=== PATIENT | male | born 1990 | race Caucasian/White ===

== ENCOUNTER 2020-10-08 15:24 | Observation (INO) | payer OTHER, SELFPAY ==
[2020-10-08] VITALS (10 sets, daily range): BP systolic 109–138; BP diastolic 43–80; PULSE 73–98; RESP 16–18; TEMP 36.3–37.1; O2SAT 95–100; BMI 26.9
--- NOTE | 2020-10-08 09:58 | HP.PCM_ITS ---
History and Physical Date of Admission: 10/08/20 HISTORY OF PRESENT ILLNESS Patient is a 30 year old male who presents for evaluation of left axillary painful mass that is consistent with hidradenitis. He went to [facility] 2 weeks ago and was placed on antibiotics and Kenalog injections. The redness and pain has increased over the past week. He denies any trauma, fever or drainage from the left axilla site. He was seen last week on 09/26/20. He was started on Clindamycin. Since then he states there was spontaneous drainage and the pain has improved. He still notices firmness in his left axilla. He presents today for further evaluation and treatment. PAST MEDICAL HISTORY Seizure Hereditary hemorrhagic telangiectasia Hidradenitis suppurativa of left axilla PAST SURGICAL HISTORY gamma knife treatment ALLERGIES phenytoin [From Dilantin] shellfish MEDICATIONS carbamazepine lacosamide clindamycin HCl doxycycline hyclate FAMILY HISTORY Mother - Hypertension SOCIAL HISTORY Smoking Status: Never smoker alcohol intake: current substance use type: does not use REVIEW OF SYSTEMS General - Denies fever, fatigue, and weight loss. Eyes - Denies cataracts and glaucoma. ENT - Denies nasal congestion and sore throat. Endocrine - Denies excessive thirst and urination. Skin - Denies skin cancer. Has painful mass left axilla consistent with hidradenitis. Denies any drainage. Musculoskeletal - Denies joint pain, joint stiffness, weakness of muscles and joints, back pain, and arthritis. Neuro - Has a history of seizures and HHT since he was 3. Had surgery with Gamma knife. He gets MRI every 6 months. His Neurologist was Dr. Wilson (who re cently retired) at [facility] in [place]. Cardiovascular - Denies chest pain, fatigue, and shortness of breath with exertion. Psych - Denies anxiety and depression. Respiratory - Denies chronic cough and shortness of breath. Gastrointestinal - Denies nausea, vomiting, diarrhea, and constipation. Hematologic - Denies abnormal bruising and bleeding. Has hereditary hemorrhagic telangiectasia (HHT). Genitourinary - Denies hematuria and urinary frequency. PHYSICAL EXAMINATION General - Alert and oriented. HEENT - PERRL. EOMI. Throat is clear. Neck - Supple and non-tender. No cervical adenopathy. Lungs- Clear to auscultation. Heart - Regular rate and rhythm. Abdomen - Soft and non distended. Extremities - FROM. No right axillary adenopathy. Hard to palpate left axilla for adenopathy secondary to the painful hidradenitis mass. Radial pulses are palpable. In the left axillary area was a soft tissue mass that is now flat. Erythematous skin is less. Some induration still present. Measures 5 cm. There is less tenderness to palpation. No fluctuance. No purulent drainage. It is clinically consistent with hidradenitis. He has full range of motion of his left shoulder. Neuro - CN II-XII grossly intact. Psych - Normal mood and affect. ASSESSMENT 1. Hidradenitis left axilla. 2. Hereditary hemorrhagic telangiectasia (HHT). 3. Epilepsy. PLAN Patient has a flare up of hidradenitis left axilla. He states it is new. He has no other areas of concern at this time. Told the patient that hidradenitis can occur in other areas and to look out for it in the future. Since starting Clindamycin and since there has been spontaneous drainage, his symptoms have improved. There is no urgency to admit him to the hospital and start IV antibiotics. If redness, swelling, pain or fever worsen, instructed to go to ED for further evaluation for admission for IV antibiotics and operative intervention with excision of his hidradenitis. Since there is improvement with Clindamycin then can electively schedule his hidradenitis surgery. Will schedule in the next week or so. Followup office one week. When the Clindamycin is finished, will start him on Doxycycline for future flare ups. Surgery will be done under general anesthesia with a surgical observation overnight stay in the hospital. Would leave the wound open and begin postop wound care with the VAC. Tissue removed would be sent to Pathology for analysis to rule out carcinoma and to Microbiology for culture. A positive culture would necessitate antibiotic therapy. After discharge, he would followup at [facility]. If there is a plateau in the healing process, can then proceed with delayed closure with skin grafting. After surgery, will encourage range of motion exercises to minimize stiffness. Patient was informed of the risks and complications of the procedure including alternatives to surgery. These were discussed with the patient personally. Patient voices understanding and wishes to proceed. Some of the risks and complications were included in a form from the [employer]. We discussed the current risks associated with COVID-19. While it is understood that there is a community spread of COVID-19, the risk of brittani COVID-19 while at [facility] ([facility]) is very low; however, the risk cannot be completely mitigated because of the community spread of the disease. We discussed in detail the risk of exposure to and/or potential harm posed by the COVID-19 virus with having a surgery/procedure at this time versus the risk of delaying the surgery/procedure. It is not possible to know either the risk of delaying the surgery or procedure or chance of getting an infection with perfect accuracy, but a joint decision was made to proceed at this time with the scheduled surgery/procedure as indicated on the consent form. Patient was notified that we will need to comply with any screening or testing [facility] wishes to perform or that surgery may be delayed for any positive results. Discussed with the patient that I was tested for COVID-19 on 05/03/20 which was negative and on 05/17/20 which was negative and on 05/31/20 which was negative and on 06/14/20 which was negative and on 06/28/20 which was negative and on 07/19/20 which was negative and on 08/09/20 which was negative and on 09/13/20 which was negative and on 10/04/20 which was negative. My testing regimen at this time is to be COVID-19 tested every 2 weeks or so. Procedure Criteria Procedure Type: Elective COVID Risk Discussion: The surgeon/proceduralist and patient have discussed in detail the risk of exposure to and/or potential harm posed by the COVID-19 virus with having a surgery/procedure at this time versus the risk of delaying the surgery/procedure. It is not possible to know either the risk of delaying the surgery or procedure or chance of getting an infection with perfect accuracy, but a joint decision was made between the patient and the surgeon/proceduralist to proceed at this time with the scheduled surgery/procedure as indicated on the consent form.
[2020-10-08] MEDS: Lactated Ringers 1,000 ML 100 ML IV (13:55)
--- NOTE | 2020-10-08 14:30 | HID_PTH ---
PATIENT: QUITA MARTINEZ LOC: MS3 U#:[id number] AGE/SX: 30/M ROOM: MS308 RE10/08/[address]: Dr. Brayan Mathew MD : 1990 BED: 1 DIS: 10/09/2020 SPEC #: [id number] RECD: 10/08/20 15:55 STATUS: JESSICA CHUYITA #: [id number] SANDRA: 10/08/20 14:[address]: Brayan Mathew DEPT: SURGICAL PATHOLOGY RECD BY: Griselda Shaikh Tissues: Soft tissues, NOS Procedures: Surgery Specimen Level III HEADER OPERATION: Surgical preparation axilla excision, hidradenitis PRE-OP DIAGNOSIS: Hidradenitis left axilla TISSUE SUBMITTED: Soft tissue hidradenitis left axilla MICROSCOPIC DIAGNOSIS Skin and soft tissue of left axilla, excision: Consistent with hidradenitis. AM:ez 10/10/20 MICROSCOPIC DESCRIPTION Slides are reviewed. GROSS DESCRIPTION Received in fixative is one container labeled with the patient's name and designated skin and soft tissue of left axilla. The specimen consists of a discoid fragment of light young skin with attached fibrofatty tissue measuring 4.5 x 3.5 cm and depth of excision measuring 1.5 cm. Serial sections do not reveal mass lesions. Graphic Editor sections are submitted in three cassettes. / AM:ez 10/09/20 TC:2 CPT: 22816
[2020-10-08] MEDS: Cefazolin 2 GM in 0.9% Normal Saline 100 ML IV (14:32)
[2020-10-08] MEDS: Lidocaine 1% /Epi 1:100 (20ml) 20 ML Vial ×3 (14:45→15:07)
--- NOTE | 2020-10-08 15:30 | OP.PCM_ITS ---
Report of Operation Date of Procedure: 10/08/20 Pre-Operative Diagnosis: 1. Hidradenitis left axilla. 2. Hereditary hem orrhagic telangiectasia (HHT). 3. Epilepsy. Post-Operative Diagnosis: Same. Surgery/Procedure Performed:: Surgical preparation left axilla with excision hidradenitis (18 cm2). Description of Surgical Findings:: Patient is a 30 year old male who presents for evaluation of left axillary painful mass that is consistent with hidradenitis. He went to [facility] 2 weeks ago and was placed on antibiotics and Kenalog injections. The redness and pain has increased over the past week. He denies any trauma, fever or drainage from the left axilla site. He was seen last week on 09/26/20. He was started on Clindamycin. Since then he states there was spontaneous drainage and the pain has improved. He still notices firmness in his left axilla. Patient was informed of the risks and complications of the procedure including alternatives to surgery. These were discussed with the patient personally. Patient voices understanding and wishes to proceed. Some of the risks and complications were included in a form from the [employer]. Size of defect left axilla - 6 x 3 x 2.5 cm. senior planning analyst: None Type of Anesthesia:: Local MAC - xylocaine with epinephrine and IV sedation. Specimen's removed: Left axillary hidradenitis to Pathology and Microbiology. Drains: None. Estimated Blood Loss (mL): 50 ml. Description of Procedure: Patient was taken to OR in supine position and was given IV sedation. The left axilla was prepped and draped in the usual fashion. SCD's were placed for DVT prophylaxis. Perioperative antibiotics were given intravenously. For the procedure, I wore an N95 mask and wore proper eyewear protection. The left axillary hidradenitis was infiltrated with xylocaine and epinephrine. After waiting 5 minutes for the anesthetic to take effect, I used a scalpel and proceeded with surgical preparation of the left axilla with excision of his hidradenitis. No purulent drainage was seen. In the subcutaneous tissue, there was extensive fat necrosis. There was extensive indurated scar tissue extending down to the underlying muscle and was excised. Some of the tissue was sent to Pathology for analysis to rule out carcinoma and to Microbiology for culture. A positive culture will necessitate antibiotic therapy. The wound was irrigated with saline. Hemostasis was obtained with electrocautery. The size of the defect left axilla after excision hidradenitis was 6 x 3 x 2.5 cm or 18 cm2. The wound was dressed with Mepitel nonadherent dressing followed by Kerlix gauze and Betadine followed by dry Kerlix gauze followed by ABD pads and compression BELL wrap. Patient tolerated the procedure well and was sent to PACU in satisfactory condition. Patient will be sent upstairs for continued postop care. The VAC will be applied tomorrow. Grafts/Implants Used: None. - Complications None. - Admit VTE Documentation VTE Present on Admission: No VTE Mechan Device Prophylaxis: SCD's VTE Pharm Prophylaxis ordered?: No Surgery Charges CPT - 93078 ICD-10 - L73.2, I78.0, R56.9
[2020-10-08] MEDS: oxyCODONE 5 MG Tablet 10 MG PO (18:24)
[2020-10-08] MEDS: Lactated Ringers 1,000 ML 60 ML IV (18:28)
[2020-10-08] MEDS: Lacosamide 100 MG Tablet 200 MG PO (19:26)
[2020-10-08] MEDS: carBAMazepine 400 MG TAB.SR.12H PO (19:28)
[2020-10-08] MEDS: HYDROmorphone 1 MG/ML Syringe IV (20:37)
[2020-10-09] MEDS: HYDROmorphone 1 MG/ML Syringe IV ×3 (01:12→15:37)
[2020-10-09 01:15] VITALS: BP 103/51; PULSE 69; RESP 16; TEMP 36.8; O2SAT 97
[2020-10-09] MEDS: Lactated Ringers 1,000 ML 60 ML IV (04:10)
[2020-10-09 05:01] VITALS: BP 114/56; PULSE 71; RESP 16; TEMP 36.8; O2SAT 100
[2020-10-09 06:57] LABS: Hematocrit 40.4 % (40-54); Hemoglobin 13.1 g/dL (13.0-16.5); Mean Corp Hgb Conc 32.4 g/dL (32-36); Mean Corpuscular Hgb 29.7 pg (27.0-32.0); Mean Corpuscular Volume 91.6 fL (80-94); Mean Platelet Vol. 8.7 fl (6.2-12.0); Platelet Count 310 K/mm3 (150-450); RBC Distribution Width CV 13.4 % (11.6-14.6); RBC Distribution Width SD 45.6 fl (35.1-43.9); Red Blood Count 4.41 M/mm3 (4.6-6.2); White Blood Count 8.5 K/mm3 (4.4-11.0)
[2020-10-09] MEDS: carBAMazepine 400 MG TAB.SR.12H PO (07:26)
[2020-10-09 07:36] LABS: Anion Gap 7 (5-15); BUN 12 mg/dL (7-18); BUN/Creat Ratio 13.1 RATIO (10-20); Calcium,Total 8.9 mg/dL (8.5-10.1); Chloride 106 mmol/L (98-107); Creatinine, Serum 0.92 mg/dL (0.70-1.30); EST Glomerular Filtration Rate 104 mL/min (>60); Est Glom Filt Rate - Afr Amer 125 mL/min (>60); Estimated Creatinine Clearance 133.89 ml/min; Glucose 106 mg/dL (74-106); Potassium 4.1 mmol/L (3.5-5.1); Prealbumin 30.8 mg/dL (20.0-40.0); Sodium Level 141 mmol/L (136-145)
--- NOTE | 2020-10-09 09:30 | PCM.PN.SRG ---
Subjective: Post op day #1. Resting in bed. Complaining of wound pain. - Physical Exam Vitals/I&O's: Vital Signs Temp Pulse Resp BP Pulse Ox 98.3 F 71 16 114/56 L 100 10/09/20 05:01 10/09/20 05:01 10/09/20 05:01 10/09/20 05:01 10/09/20 05:01 Oxygen Delivery Method Room Air Weight: 204 lb 9.423 oz Body Mass Index (BMI) 26.9 Intake and Output for Last 24 Hours 10/07/20 10/08/20 10/09/20 23:59 23:59 23:59 Intake Total 809 / 809 1356 / 1356 Output Total 500 / 500 1775 / 1775 Balance 309 / 309 -419 / -419 General: Alert, Oriented x3, Cooperative HEENT: Atraumatic Oral: Moist Mucosa Lungs: Normal air movement Cardiovascular: Regular rate Abdomen: Bowel Sounds Present Extremities: Capillary Refill Less than 3 Seconds Skin: Ulcer/ Wound - Left axilla wound dressing intact. No active bleeding. Wound stable. Musculoskeletal: No Tenderness to Palpation of Joints or Extremities - Good left shoulder range of motion Neurological: Cranial nerves II-XII grossly intact Psych/Mental Status: Normal Affect, Appropriate Microbiology Past 72 Hours 10/08/20 15:15 Tissue - Other Gram Stain - Final 10/08/20 15:15 Tissue - Other Wound Culture - Preliminary Gram negative mike Laboratory Results 10/09/20 06:32: WBC 8.5, RBC 4.41 L, Hgb 13.1, Hct 40.4, MCV 91.6, MCH 29.7, MCHC 32.4, RDW Std Deviation 45.6 H, RDW Coeff of Obey 13.4, Plt Count 310, MPV 8.7 10/09/20 06:32: Sodium 141, Potassium 4.1, Chloride 106, Carbon Dioxide 28.0, Anion Gap 7, BUN 12, Creatinine 0.92, Estim Creat Clear Calc 133.89, Est GFR (MDRD) Af Amer 125, Est GFR (MDRD) Non-Af 104, BUN/Creatinine Ratio 13.1, Glucose 106, Calcium 8.9, Prealbumin 30.8 Current Medications Carbamazepine (Carbamazepine 400 Mg Tab.Sr.12h) 400 mg PO BID [facility] Last Admin: 10/09/20 07:26 Dose: 400 mg Documented by: Diazepam (Diazepam 5 Mg Tablet) 5 mg PO 4X/DAY PRN PRN PRN Reason: SPASMS Docusate Sodium (Docusate Sodium 100 Mg Capsule) 100 mg PO BID [facility] Last Admin: 10/09/20 09:47 Dose: 100 mg Documented by: Hydromorphone HCl (Hydromorphone 1 Mg/Ml Syringe) 1 mg IV Q4H PRN PRN PRN Reason: Pain Score 6-10 Last Admin: 10/09/20 05:07 Dose: 1 mg Documented by: Clindamycin Phosphate 600 mg/ (Dextrose) 54 mls @ 100 mls/hr IV Q8 [facility] Last Infusion: 10/09/20 05:40 Dose: Infused Documented by: Lactated Ringer's () 1,000 mls @ 60 mls/hr IV .[id number] [facility] Last Admin: 10/09/20 04:10 Dose: 60 mls/hr Documented by: Sodium Chloride () 250 mls @ 15 mls/hr IV .[id number] PRN PRN Reason: Saline Flush Sodium Chloride () 250 mls @ 15 mls/hr IV .[id number] PRN PRN Reason: Additional IVPB Infusion Lacosamide (Lacosamide 100 Mg Tablet) 200 mg PO BID [facility] Nutritional Formula (Nutritional [facility] (Patel) Packet) [facility] Last Admin: 10/09/20 07:28 Dose: 1 packet Documented by: Ondansetron HCl (Ondansetron 4 Mg/2 Ml Vial) 4 mg IV Q6H PRN PRN PRN Reason: NAUSEA Oxycodone HCl (Oxycodone 5 Mg Tablet) 10 mg PO Q4H PRN PRN PRN Reason: Pain Score 4-5 Last Admin: 10/09/20 13:42 Dose: 10 mg Documented by: Promethazine HCl (Promethazine 25 Mg Tablet) 25 mg PO Q4H PRN PRN PRN Reason: NAUSEA/VOMITING Sodium Chloride (0.9% Saline Lock 10 Ml Syringe) 10 - 40 ml IV UD PRN PRN Reason: SALINE FLUSH Medical Necessity - Tobacco Use Smoking Status: Current some day smoker Tobacco Use: Cigars Assessment/Plan All Active Problems (Last Reviewed 10/03/20 @ 17:[address] Brayan Mathew MD) Hidradenitis suppurativa of left axilla (Acute) 1. Hidradenitis left axilla 2. Hereditary hemorrhagic telangiectasia (HHT). 3. Epilepsy Patient is one day post op for Surgical preparation left axilla with excision hidradenitis (18 cm2). Patient states he has been having issues with pain control. He required IV pain meds throughout the night. He states that he has not noticed any relief with Oxycodone. He denies taking any Valium for muscle spasms, which he was instructed it may be beneficial with his discomfort. Operative culture is pending. Receiving Clindamycin IV. He will be discharged with a wound VAC and home health. Prealbumin is 30.8. Encouraged increase protein intake and supplementation. He will follow up next week on 10/15/20 at the wound center.
[2020-10-09] MEDS: oxyCODONE 5 MG Tablet 10 MG PO ×2 (09:46→13:42)
[2020-10-09] MEDS: Lacosamide 100 MG Tablet 200 MG PO (09:47)
[2020-10-09] MEDS: Docusate Sodium 100 MG Capsule PO (09:47)
--- NOTE | 2020-10-09 09:47 | CASEMGMT ---
Addendum entered by Precious De Santiago 10/09/20 13:10: DUY MERCADO received call back from [facility] and they are able to accept the patient. CM will fax discharge instructions when available. Addendum entered by Precious De Santiago 10/09/20 11:39: DUY MERCADO to discuss HHC choices, patient would like [facility] as first choice and [facility] as second. DUY MERCADO sent referral to [facility] and awaiting acceptance. CM will continue to follow this patient and plan for a safe discharge. Original Note: DUY MERCADO updated by wound nurse that patient will need C for wound vac care. DUY MERCADO provided patient with list of in-network HHC agencies to review. CM will follow-up with patient and assist with HHC setup.
[2020-10-09 11:00] VITALS: BP 129/60; PULSE 71; RESP 16; TEMP 37; O2SAT 100
--- NOTE | 2020-10-09 16:29 | PCM.DC ---
You will use the following diet at home:: No restrictions, Other - encourage nutritional supplementation with protein to help the healing process. Discharge Activity: May Not Drive, May Shower - on the days the NPWT device is changed., - - keep left arm elevated. no heavy lifting. May shower in (days): 2 - may shower on the days the NPWT device is changed. May resume sexual activity in: No Restrictions Weight Bearing Status: Weight bearing as tolerated Lifting Restrictions: 20 lbs. Keep extremity elevated above heart level: Left Arm Call your doctor if your incision/area has: Continuous Slow Oozing, Sudden Increased Bleeding, Increased Pain/ Swelling, Increased Redness, Foul Smelling Discharge, Swelling at the incision site Call your doctor if you observe: Fever of 101 or Higher, Coldness, Increased Pain, Shortness of breath, Chest pain, Calf discomfort, Uncontrolled pain Change Dressing in (Days):: 2 - NPWT device change three times per week at 150 mmHg continous suction. Cleanse incision/area with: Soap & Water - may cleanse the wound at the time of the NPWT device change., - - may shower on the days the NPWT device is changed. Allergies/Adverse Reactions: Allergies phenytoin [From Dilantin] Allergy (Verified 10/08/20 13:19) unknown shellfish derived Allergy (Verified 10/08/20 13:19) unknown Medications to take at Discharge carbamazepine 400 mg tablet,extended release,12 hr 400 mg PO BID 09/17/20 Lacosamide [Vimpat] 200 mg PO BID 10/04/20 Diazepam [Valium] 5 mg PO 4X/DAY PRN PRN #30 tablet 10/09/20 Docusate Sodium [Colace] 100 mg PO BID #60 cap 10/09/20 HYDROmorphone tablet [Dilaudid] 2 mg PO Q4H PRN PRN 7 Days #40 tablet 10/09/20 levoFLOXacin tablet [Levaquin tablet] 500 mg PO DAILY #21 tab 10/09/20 proMETHazine tablet [Phenergan tablet] 25 mg PO 4X/DAY PRN PRN #30 tab 10/09/20 The following prescriptions were given: Docusate Sodium [Colace] 100 mg PO BID #60 cap Transmission Status: Pending to [id number] HYDROmorphone tablet [Dilaudid] 2 mg PO Q4H PRN PRN 7 Days #40 tablet PRN Reason: Pain Score 6-10 [place] [address] levoFLOXacin tablet [Levaquin tablet] 500 mg PO DAILY #21 tab [facility]: [facility] proMETHazine tablet [Phenergan tablet] 25 mg PO 4X/DAY PRN PRN #30 tab PRN Reason: NAUSEA/VOMITING Transmission Status[facility] Diazepam [Valium] 5 mg PO 4X/DAY PRN PRN #30 tablet PRN Reason: Spasms Transmission Status: [place] [facility] [place] [address] [address] Primary Care Physician: AIDEN ARTEAGA [Other] Test Results: Test results from this visit will be discussed in further detail at your follow-up appointment, if applicable. Please Follow Up With: Brayan Mathew MD When: thursday10/15/20 at [facility]. call [phone] for appt. Proposed Discharge Date: 10/09/20
[2020-10-09 17:00] VITALS: BP 129/65; PULSE 87; RESP 16; TEMP 36.9; O2SAT 99
== END 2020-10-09 18:00 | disposition home health service (06) ==
LOC: MS3 10-09 06:33 → SDC 10-09 13:52
PROVIDERS: Admitting Provider Surgery; Referring Provider Surgery; Visit Provider Surgery
PROC: (CPT 11450; principal; 2020-10-08 14:15)
DX: L73.2 Hidradenitis suppurativa (principal); Z20.828 Contact with and (suspected) exposure to other viral communicable diseases; I78.0 Hereditary hemorrhagic telangiectasia; G40.909 Epilepsy, unspecified, not intractable, without status epilepticus; Z23 Encounter for immunization; Z79.899 Other long term (current) drug therapy; F17.290 Nicotine dependence, other tobacco product, uncomplicated; Q28.2 Arteriovenous malformation of cerebral vessels
CPT/HCPCS: 00400; 11450; 80048; 84134; 85027; 87070; 87075; 87077; 87102; 87176; 87186; 87205; 87206; 87426; 88304; 88305; 96365; 96366; 96375; 96376; 99218; C9803; J7120; 90686; G0378; G0379; J2405

== ENCOUNTER 2020-10-29 10:15 | Outpatient (RCR) | payer OTHER, SELFPAY ==
[2020-10-08 16:41] VITALS: BMI 26.9
[2020-10-15 10:32] VITALS: BP 143/84; PULSE 102; RESP 22; TEMP 36.6; BMI 26.6
--- NOTE | 2020-10-15 12:51 | PN.PCM_ITS ---
Type of Wound Date of Service: 10/15/20 Chief Complaint: Open surgical hidradenitis wound left axilla. History of Wound: Surgery 10/08/20 - Surgical preparation left axilla with excision hidradenitis (18 cm2). Wound care - VAC. Operative culture - Proteus mirabilis. He was discharged on Levaquin. Prealbumin from 10/09/20 was 30.8. Encourage nutritional supplementation with protein to help the healing process. Today he denies fever. His appetite is good. He is able to move his left shoul mignon with some discomfort. Progress of Wound: Patient had recent surgery on 10/08/20. - Physical Exam Vital Signs Temp Pulse Resp BP 98 F 102 H 22 H 143/84 H 10/15/20 10:32 10/15/20 10:32 10/15/20 10:32 10/15/20 10:32 Wound Measurements and Assessment WC - Nurse 1 - General Ulcer Measurement Start: 10/15/20 10:30 Freq: Status: Active Protocol: Activity Type Activity Date Activity User E-Sign Co-Sign Detail Recorded Client Recorded Date Recorded By Document 10/15/20 10:32 DL [id number] 10/15/20 10:56 DL 10/15/20 10:32 Wound Center Nurse 1 [Ulcer Assessment] #1 L Axilla -Current Size (cm) - Length 3.5 -Current Size (cm) - Width 6.8 -Current Size (cm) - Depth 1.1 -Total Square Cm 23.80 -Photo Taken Yes -Exudate Amt Small -Exudate Type Serosanguineous -Wound Margin Distinct, Outline Attached -Granulation Amt Medium (34-66%) -Granulation Quality Red -Necrosis Amt Medium (34-66%) -Necrotic Tissue Type Adherent Slough -Structure Exposed N/A -Texture (Francoise-wound Skin Appearance) Scarring -Moisture (Francoise-wound Skin Appearance No Abnormality ) -Color (Francoise-wound Skin Appearance) No Abnormality -Temperature (Francoise-wound Skin No Abnormality Appearance) (Pt Warm) -Ulcer Cleansing Wound Cleanser -Foul Odor after Cleansing No -Anesthetic Used 4% Lidocaine Solution WC - Nurse 2 - General Ulcer CM Notes Start: 10/15/20 10:30 Freq: Status: Active Protocol: Activity Type Activity Date Activity User E-Sign Co-Sign Detail Recorded Client Recorded Date Recorded By Document 10/15/20 11:34 ANNI [id number] 10/15/20 11:38 ANNI 10/15/20 11:34 Wound Center Nurse 2 [Procedure/Treatment] -Time 11:36 -Correct Patient No -Correct Side, Site, Position No -Correct Procedure No -Procedure Performed No -Post Debridement (cm) - Length 3.5 -Post Debridement (cm) - Width 6.8 -Post Debridement (cm) - Depth 1.1 -Total Square (Post) (cm) 23.80 -Area of Debridement (cm) - Length 3.5 -Area of Debridement (cm) - Width 6.8 -Total Square (Area) (cm) 23.80 -Tunneling No -Undermining/Tunneling No -Circular Undermining No -Wound/Ulcer Outcome Not Healed -Ulcer Cleansing Rinsed/ Irrigated with Saline -Foul Odor after Cleansing No [See Physician Procedure note for Specifics] Pain Scale: 0-10 Numeric [Pain] -Is Patient Pain Free? Yes - Nurse 3 - General Ulcer D/C NN Start: 10/15/20 10:30 Freq: Status: Active Protocol: Activity Type Activity Date Activity User E-Sign Co-Sign Detail Recorded Client Recorded Date Recorded By Document 10/15/20 12:01 [id number] 10/15/20 12:03 10/15/20 12:01 Wound Care Nurse 3 [Wound Dressing] #1 L Axilla -Ulcer Cleansing Wound Cleanser -Foul Odor after Cleansing No -Negative Pressure Wound Therapy Continue -Setting (mmHg) 150 -Negative Pressure is Continuous -NPWT Application Charge ($) NPWT </= 50 sq cm [Francoise-Wound Care] -Francoise-Wound Care Barrier Pain Scale: 0-10 Numeric [Pain] -Is Patient Pain Free? Yes - Visit Discharge [Visit Discharge Information] -Discharge Condition Stable -Ambulatory Status Ambulatory -Transportation Private Auto Debridement Note Post-Debridement Measurements/Treatment - Nurse 2 - General Ulcer CM Notes Start: 10/15/20 10:30 Freq: Status: Active Protocol: Activity Type Activity Date Activity User E-Sign Co-Sign Detail Recorded Client Recorded Date Recorded By Document 10/15/20 11:34 ANNI [id number] 10/15/20 11:38 ANNI 10/15/20 11:34 Wound Center Nurse 2 #1 L Axilla -Time 11:36 -Correct Patient No -Correct Side, Site, Position No -Correct Procedure No -Procedure Performed No -Post Debridement (cm) - Length 3.5 -Post Debridement (cm) - Width 6.8 -Post Debridement (cm) - Depth 1.1 -Total Square (Post) (cm) 23.80 -Area of Debridement (cm) - Length 3.5 -Area of Debridement (cm) - Width 6.8 -Total Square (Area) (cm) 23.80 -Tunneling No -Undermining/Tunneling No -Circular Undermining No -Wound/Ulcer Outcome Not Healed -Ulcer Cleansing Rinsed/ Irrigated with Saline -Foul Odor after Cleansing No Pain Scale: 0-10 Numeric Is Patient Pain Free? Yes - Nurse 3 - General Ulcer D/C NN Start: 10/15/20 10:30 Freq: Status: Active Protocol: Activity Type Activity Date Activity User E-Sign Co-Sign Detail Recorded Client Recorded Date Recorded By Document 10/15/20 12:01 [id number] 10/15/20 12:03 10/15/20 12:01 Wound Care Nurse 3 #1 L Axilla -Ulcer Cleansing Wound Cleanser -Foul Odor after Cleansing No -Negative Pressure Wound Therapy Continue -Setting (mmHg) 150 -Negative Pressure is Continuous -NPWT Application Charge ($) NPWT </= 50 sq cm Francoise-Wound Care Barrier Pain Scale: 0-10 Numeric Is Patient Pain Free? Yes WC - Visit Discharge Discharge Condition Stable Ambulatory Status Ambulatory Transportation Private Auto Wound debrided: #1 Left axilla. Laterality: Left Wound Grade/Stage: 2. No debridement was completed today - There was no debridement today as he had recent surgery on 10/08/20. Assessment/Plan Assessment: 1. Open surgical hidradenitis wound left axilla. 2. Hidradenitis left axilla. 3. Hereditary hemorrhagic telangiectasia (HHT). 4. Epilepsy. 5. s/p surgical preparation left axilla with excision hidradenitis (18 cm2). Plan: Continue the VAC. Operative culture showed Proteus mirabilis. He was di scharged on Levaquin. Prealbumin from 10/09/20 was 30.8. Encourage nutritional supplementation with protein to help the healing process. Encourage range of motion exercises to minimize stiffness. Renewed his Percocet for pain (28 tabs). Followup 2 weeks. 111xxx-113xx: [id number] Global Visit - ICD-10 - Z48.89, S41.102A, L73.2, I78.0, R56.9
[2020-10-29 10:19] VITALS: BP 138/77; PULSE 85; RESP 16; TEMP 36; BMI 26.6
--- NOTE | 2020-10-29 13:19 | PCM.WC.PN ---
(1) Open wound of left axillary region with complication Status: Acute Code(s): S41.102A - Unspecified open wound of left upper arm, initial encounter (2) Hidradenitis suppurativa of left axilla Status: Chronic Code(s): L73.2 - Hidradenitis suppurativa (3) Hereditary hemorrhagic telangiectasia Status: Chronic Code(s): I78.0 - Hereditary hemorrhagic telangiectasia Comment: since age 3 Type of Wound Date of Service: 10/29/20 Chief Complaint: Open surgical hidradenitis wound left axilla. History of Wound: Surgery 10/08/20 - Surgical preparation left axilla with excision hidradenitis (18 cm2). Wound care - VAC. Operative culture - Proteus mirabilis. He was discharged on Levaquin. Prealbumin from 10/09/20 was 30.8. Encourage nutritional supplementation with protein to help the healing process. Today he denies fever. His appetite is good. He is able to move his left shoulder with some discomfort. Progress of Wound: Patient had recent surgery on 10/08/20. Left axilla ulcer improved in size and depth with the wound VAC. - Physical Exam Vital Signs Temp Pulse Resp BP 96.8 F L 85 16 138/77 H 10/29/20 10:19 10/29/20 10:19 10/29/20 10:19 10/29/20 10:19 General: Alert, Oriented x3, Cooperative HEENT: Atraumatic Oral: Moist Mucosa Lungs: Normal air movement Cardiovascular: Regular rate Extremities: Capillary Refill Less than 3 Seconds Skin: Ulcer/ Wound - Left axilla wound is beefy pink and smaller in diameter and depth. Wound Measurements and Assessment WC - Nurse 1 - General Ulcer Measurement Start: 10/15/20 10:30 Freq: Status: Active Protocol: Activity Type Activity Date Activity User E-Sign Co-Sign Detail Recorded Client Recorded Date Recorded By Document 10/29/20 10:19 [facility] [id number] 10/29/20 10:26 [facility] 10/29/20 10:19 Wound Center Nurse 1 [Ulcer Assessment] #1 L Axilla -Combined with other wound No -Current Size (cm) - Length 3.5 -Current Size (cm) - Width 5.7 -Current Size (cm) - Depth 0.9 -Total Square Cm 19.95 -Photo Taken No -Epithelialization Small 1-33% -Tunneling No -Undermining/Tunneling No -Circular Undermining No -Exudate Amt Small -Exudate Type Serosanguineous -Wound Margin Distinct, Outline Attached -Granulation Amt Large (67-100%) -Granulation Quality [place] -Slough/Fibrin Yes -Necrosis Amt Small (1-33%) -Necrotic Tissue Type Adherent Slough -Texture (Francoise-wound Skin Appearance) Assessed, Scarring -Moisture (Francoise-wound Skin Appearance Assessed ) -Color (Francoise-wound Skin Appearance) Assessed -Temperature (Francoise-wound Skin No Abnormality Appearance) (Pt Warm) -Tenderness on Palpation (Francoise-wound No Skin Appearance) -Ulcer Cleansing Rinsed/ Irrigated with Saline -Foul Odor after Cleansing No -Anesthetic Used 5% Lidocaine Gel - Nurse 2 - General Ulcer CM Notes Start: 10/15/20 10:30 Freq: Status: Active Protocol: Activity Type Activity Date Activity User E-Sign Co-Sign Detail Recorded Client Recorded Date Recorded By Document 10/29/20 10:39 ANNI [id number] 10/29/20 10:44 ANNI 10/29/20 10:39 Wound Center Nurse 2 [Procedure/Treatment] -Time 10:40 -Correct Patient Yes -Correct Side, Site, Position Yes -Correct Procedure Yes -Procedure Performed Yes -Type of Procedure Debridement -Clinical Debridement Subcutaneous -Tissue Removed Subcutaneous -Post Debridement (cm) - Length 5.8 -Post Debridement (cm) - Width 3.5 -Post Debridement (cm) - Depth 1.1 -Total Square (Post) (cm) 20.30 -Area of Debridement (cm) - Length 5.8 -Area of Debridement (cm) - Width 3.5 -Total Square (Area) (cm) 20.30 -Tunneling No -Undermining/Tunneling No -Circular Undermining No -Wound/Ulcer Outcome Not Healed -Ulcer Cleansing Rinsed/ Irrigated with Saline -Foul Odor after Cleansing No -Bioengineered Tissue No -Bleeding Controlled with Pressure -Offloading No -Treatment Response Procedure Tolerated Well -Debridement - Subq, 1st 20sq cm Yes -Debridement, SubQ, ea addt'l 20sq cm 1 or part thereof [See Physician Procedure note for Specifics] Pain Scale: 0-10 Numeric [Pain] -Is Patient Pain Free? Yes - Nurse 3 - General Ulcer D/C NN Start: 10/15/20 10:30 Freq: Status: Active Protocol: Activity Type Activity Date Activity User E-Sign Co-Sign Detail Recorded Client Recorded Date Recorded By Document 10/29/20 12:03 MARCEL [id number] 10/29/20 12:03 DL 10/29/20 12:03 Wound Care Nurse 3 [Wound Dressing] #1 L Axilla -Ulcer Cleansing Wound Cleanser -Foul Odor after Cleansing No -Negative Pressure Wound Therapy Continue -Setting (mmHg) 150 -Negative Pressure is Continuous -NPWT Application Charge ($) NPWT > 50 sq cm [Post Procedure Tolerated] -Treatment Response Procedure Tolerated Well Pain Scale: 0-10 Numeric [Pain] -Is Patient Pain Free? Yes - Visit Discharge [Visit Discharge Information] -Discharge Condition Stable -Ambulatory Status Ambulatory -Transportation Private Auto Musculoskeletal: Tenderness Neurological: Cranial nerves II-XII grossly intact Psych/Mental Status: Normal Affect, Appropriate Debridement Note Post-Debridement Measurements/Treatment - Nurse 2 - General Ulcer CM Notes Start: 10/15/20 10:30 Freq: Status: Active Protocol: Activity Type Activity Date Activity User E-Sign Co-Sign Detail Recorded Client Recorded Date Recorded By Document 10/15/20 11:34 [id number] 10/15/20 11:38 Document 10/29/20 10:39 [id number] 10/29/20 10:44 10/15/20 10/29/20 11:34 10:39 Wound Center Nurse 2 #1 L Axilla -Time 11:36 10:40 -Correct Patient No Yes -Correct Side, Site, Position No Yes -Correct Procedure No Yes -Procedure Performed No Yes -Type of Procedure Debridement -Clinical Debridement Subcutaneous -Tissue Removed Subcutaneous -Post Debridement (cm) - Length 3.5 5.8 -Post Debridement (cm) - Width 6.8 3.5 -Post Debridement (cm) - Depth 1.1 1.1 -Total Square (Post) (cm) 23.80 20.30 -Area of Debridement (cm) - Length 3.5 5.8 -Area of Debridement (cm) - Width 6.8 3.5 -Total Square (Area) (cm) 23.80 20.30 -Tunneling No No -Undermining/Tunneling No No -Circular Undermining No No -Wound/Ulcer Outcome Not Healed Not Healed -Ulcer Cleansing Rinsed/ Rinsed/ Irrigated with Irrigated with Saline Saline -Foul Odor after Cleansing No No -Bioengineered Tissue No -Bleeding Controlled with Pressure -Offloading No -Treatment Response Procedure Tolerated Well -Debridement - Subq, 1st 20sq cm Yes -Debridement, SubQ, ea addt'l 20sq cm 1 or part thereof Pain Scale: 0-10 Numeric Is Patient Pain Free? Yes Yes - Nurse 3 - General Ulcer D/C NN Start: 10/15/20 10:30 Freq: Status: Active Protocol: Activity Type Activity Date Activity User E-Sign Co-Sign Detail Recorded Client Recorded Date Recorded By Document 10/15/20 12:01 DL [id number] 10/15/20 12:03 DL Document 10/29/20 12:03 DL [id number] 10/29/20 12:03 DL 10/15/20 10/29/20 12:01 12:03 Wound Care Nurse 3 #1 L Axilla -Ulcer Cleansing Wound Cleanser Wound Cleanser -Foul Odor after Cleansing No No -Negative Pressure Wound Therapy Continue Continue -Setting (mmHg) 150 150 -Negative Pressure is Continuous Continuous -NPWT Application Charge ($) NPWT </= 50 sq NPWT > 50 sq cm cm Francoise-Wound Care Barrier Treatment Response Procedure Tolerated Well Pain Scale: 0-10 Numeric Is Patient Pain Free? Yes Yes - Visit Discharge Discharge Condition Stable Stable Ambulatory Status Ambulatory Ambulatory Transportation Private Auto Private Auto Wound debrided: Axilla wound Laterality: Left Type of Debridement: Excisional debridement Anesthesia Used: 5% Lidocaine Gel Depth: Down to and including healthy tissue, in the subcutaneous layer Percentage of wound debrided: 100 Instrument Used: 7mm curette Tissue Removed: Subcutaneous tissue and slough Severity: Fat Layer Exposed Amount of bleeding with debridement: Mild Bleeding Controlled with: Pressure Patient tolerated procedure well Assessment/Plan Assessment: 1. Open surgical hidradenitis wound left axilla. 2. Hidradenitis left axilla. 3. Hereditary hemorrhagic telangiectasia (HHT). 4. Epilepsy. 5. s/p surgical preparation left axilla with excision hidradenitis (18 cm2). Plan: Continue the VAC. Operative culture showed Proteus mirabilis. He was discharged on Levaquin. Prealbumin from 10/09/20 was 30.8. Encourage nutritional supplementation with protein to help the healing process. Encourage range of motion exercises to minimize stiffness. He is having increased pain which sounds like never pain with how he describes is at burning. Renewed his Percocet for pain (21 tabs). And will start him on Neurontin 100-200 mg twice daily (60 tabs). PDMP reviewed. Followup 2 weeks. 111xxx-113xx: [id number] Global Visit
== END 2020-11-01 23:59 ==
LOC: WC 10:15
PROVIDERS: Referring Provider Surgery; Visit Provider Surgery
DX: L73.2 Hidradenitis suppurativa (principal); I78.0 Hereditary hemorrhagic telangiectasia; L98.492 Non-pressure chronic ulcer of skin of other sites with fat layer exposed
CPT/HCPCS: 11042; 11045; 97605; 97606; 99213; G0463

== ENCOUNTER 2020-11-19 10:15 | Outpatient (RCR) | payer OTHER, SELFPAY ==
[2020-11-02 00:39] VITALS: BP 138/77; PULSE 85; RESP 16; TEMP 36
[2020-11-12 09:57] VITALS: BP 143/71; PULSE 76; RESP 16; TEMP 36.4; BMI 26.6
--- NOTE | 2020-11-12 13:13 | PCM.WC.PN ---
(1) Skin ulcer of axilla Status: Chronic Code(s): L98.499 - Non-pressure chronic ulcer of skin of other sites with unspecified severity (2) Hidradenitis suppurativa of left axilla Status: Chronic Code(s): L73.2 - Hidradenitis suppurativa Type of Wound Date of Service: 11/12/20 Chief Complaint: Open surgical hidradenitis wound left axilla. History of Wound: Surgery 10/08/20 - Surgical preparation left axilla with excision hidradenitis (18 cm2). Wound care - Stop wound VAC and start Silvercel daily. Operative culture - Proteus mirabilis. He was discharged on Levaquin. Prealbumin from 10/09/20 was 30.8. Encourage nutritional supplementation with protein to help the healing process. Today he denies fever. His appetite is good. Progress of Wound: Left axilla ulcer is much improved. - Physical Exam Vital Signs Temp Pulse Resp BP 97.6 F L 76 16 143/71 H 11/12/20 09:57 11/12/20 09:57 11/12/20 09:57 11/12/20 09:57 General: Alert, Oriented x3, Cooperative HEENT: Atraumatic Oral: Moist Mucosa Lungs: Normal air movement Cardiovascular: Regular rate Extremities: Capillary Refill Less than 3 Seconds Skin: Ulcer/ Wound - Left axilla ulcer is beefy pink and improving in side. Wound Measurements and Assessment WC - Nurse 1 - General Ulcer Measurement Start: 11/12/20 09:56 Freq: Status: Active Protocol: Activity Type Activity Date Activity User E-Sign Co-Sign Detail Recorded Client Recorded Date Recorded By Document 11/12/20 09:57 [facility] [id number] 11/12/20 10:00 [facility] 11/12/20 09:57 Wound Center Nurse 1 [Ulcer Assessment] #1 L Axilla -Combined with other wound No -Current Size (cm) - Length 2.4 -Current Size (cm) - Width 4.2 -Current Size (cm) - Depth 0.1 -Total Square Cm 10.08 -Photo Taken No -Epithelialization Small 1-33% -Tunneling No -Undermining/Tunneling No -Circular Undermining No -Exudate Amt Small -Exudate Type Serosanguineous -Wound Margin Distinct, Outline Attached -Granulation Amt Large (67-100%) -Granulation Quality Pale,Red -Slough/Fibrin Yes -Necrosis Amt None Present (0 %) -Texture (Francoise-wound Skin Appearance) Assessed, Scarring -Moisture (Francoise-wound Skin Appearance Assessed ) -Color (Francoise-wound Skin Appearance) Assessed -Temperature (Francoise-wound Skin No Abnormality Appearance) (Pt Warm) -Tenderness on Palpation (Francoise-wound No Skin Appearance) -Ulcer Cleansing Rinsed/ Irrigated with Saline -Foul Odor after Cleansing No -Anesthetic Used 4% Lidocaine Solution NIRANJAN - Nurse 2 - General Ulcer CM Notes Start: 11/12/20 09:56 Freq: Status: Active Protocol: Activity Type Activity Date Activity User E-Sign Co-Sign Detail Recorded Client Recorded Date Recorded By Document 11/12/20 10:13 [id number] 11/12/20 10:16 11/12/20 10:13 Wound Center Nurse 2 [Procedure/Treatment] -Time 10:14 -Correct Patient Yes -Correct Side, Site, Position Yes -Correct Procedure Yes -Procedure Performed Yes -Type of Procedure Debridement -Clinical Debridement Subcutaneous -Tissue Removed Subcutaneous -Post Debridement (cm) - Length 2.1 -Post Debridement (cm) - Width 3.5 -Post Debridement (cm) - Depth 0.1 -Total Square (Post) (cm) 7.35 -Area of Debridement (cm) - Length 2.1 -Area of Debridement (cm) - Width 3.5 -Total Square (Area) (cm) 7.35 -Tunneling No -Undermining/Tunneling No -Circular Undermining No -Wound/Ulcer Outcome Not Healed -Ulcer Cleansing Rinsed/ Irrigated with Saline -Foul Odor after Cleansing No -Bioengineered Tissue No -Bleeding Controlled with Pressure -Offloading No -Treatment Response Procedure Tolerated Well -Debridement - Subq, 1st 20sq cm Yes [See Physician Procedure note for Specifics] Pain Scale: 0-10 Numeric [Pain] -Is Patient Pain Free? Yes NIRANJAN - Nurse 3 - General Ulcer D/C NN Start: 11/12/20 09:56 Freq: Status: Active Protocol: Activity Type Activity Date Activity User E-Sign Co-Sign Detail Recorded Client Recorded Date Recorded By Document 11/12/20 10:24 FL [id number] 11/12/20 10:36 FL 11/12/20 10:24 Wound Care Nurse 3 [Wound Dressing] #1 L Axilla -Ulcer Cleansing Rinsed/ Irrigated with Saline -Primary Dressing Applied Silvercel -Primary Dressing Covered/Secured Dry Gauze, with Secured with Tape -Silvercel 1 - Visit Discharge [Visit Discharge Information] -Discharge Condition Stable -Ambulatory Status Ambulatory -Transportation Private Auto -Medication Reconcilliation completed No & provided to patient/care provider -Clinical Summary of Care Provided Yes Musculoskeletal: No Tenderness to Palpation of Joints or Extremities Neurological: Cranial nerves II-XII grossly intact, Deep Tendon Reflexes 2+/4 and Symmetrical Debridement Note Post-Debridement Measurements/Treatment - Nurse 2 - General Ulcer CM Notes Start: 11/12/20 09:56 Freq: Status: Active Protocol: Activity Type Activity Date Activity User E-Sign Co-Sign Detail Recorded Client Recorded Date Recorded By Document 11/12/20 10:13 [id number] 11/12/20 10:16 11/12/20 10:13 Wound Center Nurse 2 #1 L Axilla -Time 10:14 -Correct Patient Yes -Correct Side, Site, Position Yes -Correct Procedure Yes -Procedure Performed Yes -Type of Procedure Debridement -Clinical Debridement Subcutaneous -Tissue Removed Subcutaneous -Post Debridement (cm) - Length 2.1 -Post Debridement (cm) - Width 3.5 -Post Debridement (cm) - Depth 0.1 -Total Square (Post) (cm) 7.35 -Area of Debridement (cm) - Length 2.1 -Area of Debridement (cm) - Width 3.5 -Total Square (Area) (cm) 7.35 -Tunneling No -Undermining/Tunneling No -Circular Undermining No -Wound/Ulcer Outcome Not Healed -Ulcer Cleansing Rinsed/ Irrigated with Saline -Foul Odor after Cleansing No -Bioengineered Tissue No -Bleeding Controlled with Pressure -Offloading No -Treatment Response Procedure Tolerated Well -Debridement - Subq, 1st 20sq cm Yes Pain Scale: 0-10 Numeric Is Patient Pain Free? Yes - Nurse 3 - General Ulcer D/C NN Start: 11/12/20 09:56 Freq: Status: Active Protocol: Activity Type Activity Date Activity User E-Sign Co-Sign Detail Recorded Client Recorded Date Recorded By Document 11/12/20 10:24 FL [id number] 11/12/20 10:36 FL 11/12/20 10:24 Wound Care Nurse 3 #1 L Axilla -Ulcer Cleansing Rinsed/ Irrigated with Saline -Primary Dressing Applied Silvercel -Primary Dressing Covered/Secured with Dry Gauze, Secured with Tape -Silvercel 1 WC - Visit Discharge Discharge Condition Stable Ambulatory Status Ambulatory Transportation Private Auto Medication Reconcilliation completed & No provided to patient/care provider Clinical Summary of Care Provided Yes Wound debrided: axilla ulcer Laterality: Left Type of Debridement: Excisional debridement Anesthesia Used: 5% Lidocaine Gel Depth: Down to and including healthy tissue, in the subcutaneous layer Percentage of wound debrided: 100 Instrument Used: 5mm curette Tissue Removed: Subcutaneous tissue and slough Severity: Fat Layer Exposed Amount of bleeding with debridement: Mild Bleeding Controlled with: Pressure Patient tolerated procedure well Assessment/Plan Assessment: 1. Open surgical hidradenitis wound left axilla. 2. Hidradenitis left axilla. 3. Hereditary hemorrhagic telangiectasia (HHT). 4. Epilepsy. 5. s/p surgical preparation left axilla with excision hidradenitis (18 cm2). Plan: Wound care - Stop the VAC. Start Silvercel dressing changes daily. Operative culture showed Proteus mirabilis. He was discharged on Levaquin. Prealbumin from 10/09/20 was 30.8. Encourage nutritional supplementation with protein to help the healing process. Encourage range of motion exercises to minimize stiffness. 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 Follow up one week. 111xxx-113xx: [id number] Global Visit
[2020-11-19 10:52] VITALS: BP 119/62; PULSE 73; TEMP 36.4; BMI 26.6
--- NOTE | 2020-11-19 20:23 | PCM.WC.PN ---
Type of Wound Date of Service: 11/19/20 Chief Complaint: Nonhealing hidradenitis ulcer left axilla. History of Wound: Surgery 10/08/20 - Surgical preparation left axilla with excision hidradenitis (18 cm2). Wound care - Silvercel. Operative culture - Proteus mirabilis. He was discharged on Levaquin and is finishing them. Prealbumin from 10/09/20 was 30.8. Encourage nutritional supplementation with protein to help the healing process. Today he denies fever. His appetite is good. He has good range of motion of his left arm and shoulder. Progress of Wound: Improved. - Physical Exam Vital Signs Temp Pulse Resp BP 97.5 F L 73 16 119/62 11/19/20 10:52 11/19/20 10:52 11/12/20 09:57 11/19/20 10:52 Wound Measurements and Assessment - Nurse 1 - General Ulcer Measurement Start: 11/12/20 09:56 Freq: Status: Active Protocol: Activity Type Activity Date Activity User E-Sign Co-Sign Detail Recorded Client Recorded Date Recorded By Document 11/19/20 10:52 SHERINE [id number] 11/19/20 10:57 SHERINE 11/19/20 10:52 Wound Center Nurse 1 [Ulcer Assessment] #1 L Axilla -Current Size (cm) - Length 1.5 -Current Size (cm) - Width 3 -Current Size (cm) - Depth 0.1 -Total Square Cm 4.5 -Wound Margin Distinct, Outline Attached -Granulation Amt Medium (34-66%) -Granulation Quality Red -Necrosis Amt None Present (0 %) -Texture (Francoise-wound Skin Appearance) Assessed, Scarring -Moisture (Francoise-wound Skin Appearance No Abnormality, ) Assessed -Color (Francoise-wound Skin Appearance) No Abnormality, Assessed -Temperature (Francoise-wound Skin No Abnormality Appearance) (Pt Warm) -Tenderness on Palpation (Francoise-wound No Skin Appearance) -Ulcer Cleansing Rinsed/ Irrigated with Saline -Foul Odor after Cleansing No -Anesthetic Used 4% Lidocaine Solution - Nurse 3 - General Ulcer D/C NN Start: 11/12/20 09:56 Freq: Status: Active Protocol: Activity Type Activity Date Activity User E-Sign Co-Sign Detail Recorded Client Recorded Date Recorded By Document 11/19/20 11:37 KR [id number] 11/19/20 11:38 KR 11/19/20 11:37 Wound Care Nurse 3 [Wound Dressing] -Ulcer Cleansing Rinsed/ Irrigated with Saline -Primary Dressing Applied Aquacel AG 2x2 -Primary Dressing Covered/Secured Dry Gauze, with Secured with Tape -Aquacel AG 2x2 1 Pain Scale: 0-10 Numeric [Pain] -Is Patient Pain Free? Yes WC - Visit Discharge [Visit Discharge Information] -Discharge Condition Stable -Ambulatory Status Ambulatory -Transportation Private Auto Debridement Note Post-Debridement Measurements/Treatment - Nurse 2 - General Ulcer CM Notes Start: 11/12/20 09:56 Freq: Status: Active Protocol: Activity Type Activity Date Activity User E-Sign Co-Sign Detail Recorded Client Recorded Date Recorded By Document 11/12/20 10:13 ANNI [id number] 11/12/20 10:16 ANNI 11/12/20 10:13 Wound Center Nurse 2 #1 L Axilla -Time 10:14 -Correct Patient Yes -Correct Side, Site, Position Yes -Correct Procedure Yes -Procedure Performed Yes -Type of Procedure Debridement -Clinical Debridement Subcutaneous -Tissue Removed Subcutaneous -Post Debridement (cm) - Length 2.1 -Post Debridement (cm) - Width 3.5 -Post Debridement (cm) - Depth 0.1 -Total Square (Post) (cm) 7.35 -Area of Debridement (cm) - Length 2.1 -Area of Debridement (cm) - Width 3.5 -Total Square (Area) (cm) 7.35 -Tunneling No -Undermining/Tunneling No -Circular Undermining No -Wound/Ulcer Outcome Not Healed -Ulcer Cleansing Rinsed/ Irrigated with Saline -Foul Odor after Cleansing No -Bioengineered Tissue No -Bleeding Controlled with Pressure -Offloading No -Treatment Response Procedure Tolerated Well -Debridement - Subq, 1st 20sq cm Yes Pain Scale: 0-10 Numeric Is Patient Pain Free? Yes - Nurse 3 - General Ulcer D/C NN Start: 11/12/20 09:56 Freq: Status: Active Protocol: Activity Type Activity Date Activity User E-Sign Co-Sign Detail Recorded Client Recorded Date Recorded By Document 11/12/20 10:24 MT [id number] 11/12/20 10:36 MT Document 11/19/20 11:37 KR [id number] 01/18/21 11:38 KR 11/12/20 11/19/20 10:24 11:37 Wound Care Nurse 3 #1 L Axilla -Ulcer Cleansing Rinsed/ Rinsed/ Irrigated with Irrigated with Saline Saline -Primary Dressing Applied Silvercel Aquacel AG 2x2 -Primary Dressing Covered/Secured with Dry Gauze, Dry Gauze, Secured with Secured with Tape Tape -Aquacel AG 2x2 1 -Silvercel 1 Pain Scale: 0-10 Numeric Is Patient Pain Free? Yes WC - Visit Discharge Discharge Condition Stable Stable Ambulatory Status Ambulatory Ambulatory Transportation Private Auto Private Auto Medication Reconcilliation completed & No provided to patient/care provider Clinical Summary of Care Provided Yes Wound debrided: #1 Left axilla. Laterality: Left Wound Grade/Stage: 2. Type of Debridement: Excisional debridement Anesthesia Used: 4% Lidocaine Solution Depth: Down to and including healthy tissue, in the subcutaneous layer Percentage of wound debrided: 100 Instrument Used: 3mm curette Tissue Removed: subcutaneous tissue. Severity: Fat Layer Exposed Amount of bleeding with debridement: Mild Bleeding Controlled with: Pressure Patient tolerated procedure well Assessment/Plan Active Problems (Last Reviewed 10/03/20 @ 17:[address] Brayan Mathew MD) Skin ulcer of axilla (Chronic) Hidradenitis suppurativa of left axilla (Chronic) Assessment: 1. Nonhealing hidradenitis ulcer left axilla. 2. Hidradenitis left axilla. 3. Hereditary hemorrhagic telangiectasia (HHT). 4. Epilepsy. 5. s/p surgical preparation left axilla with excision hidradenitis (18 cm2). Plan: Continue Silvercel dressing changes daily. Operative culture showed Proteus mirabilis. He was discharged on Levaquin and is finishing them. Prealbumin from 10/09/20 was 30.8. Encourage nutritional supplementation with protein to help the healing process. Encourage range of motion exercises to minimize stiffness. He has good range of motion of his left arm and shoulder. He is anxious to return to work. Will have him return tomorrow with no restrictions. Follow up 2 weeks. [id number]: [id number] Global Visit - ICD-10 - Z48.89, L98.492, L73.2, I78.0, R56.9
== END 2020-12-02 23:59 ==
LOC: WC 10:15
PROVIDERS: Referring Provider Surgery; Visit Provider Surgery
DX: L73.2 Hidradenitis suppurativa (principal); L98.492 Non-pressure chronic ulcer of skin of other sites with fat layer exposed; I78.0 Hereditary hemorrhagic telangiectasia
CPT/HCPCS: 11042

== ENCOUNTER 2020-12-03 14:00 | Outpatient (RCR) | payer OTHER, SELFPAY ==
[2020-12-03 00:34] VITALS: BP 119/62; PULSE 73; RESP 16; TEMP 36.4
[2020-12-03 14:07] VITALS: BP 138/77; PULSE 77; RESP 18; TEMP 36; BMI 26.6
--- NOTE | 2020-12-03 14:35 | PN.PCM_ITS ---
(1) Skin ulcer of axilla Status: Chronic Code(s): L98.499 - Non-pressure chronic ulcer of skin of other sites with unspecified severity (2) Hidradenitis suppurativa of left axilla Status: Chronic Code(s): L73.2 - Hidradenitis suppurativa Type of Wound Date of Service: 12/03/20 Chief Complaint: Nonhealing hidradenitis ulcer left axilla. History of Wound: Surgery 10/08/20 - Surgical preparation left axilla with excision hidradenitis (18 cm2). Healed today. Operative culture - Proteus mirabilis. He was discharged on Levaquin and is finishing them. Prealbumin from 10/09/20 was 30.8. Encourage nutritional supplementation with protein to help the healing process. Today he denies fever. His appetite is good. He has good range of motion of his left arm and shoulder. Progress of Wound: Healed. - Physical Exam Vital Signs Temp Pulse Resp BP 96.8 F L 77 18 138/77 H 12/03/20 14:07 12/03/20 14:07 12/03/20 14:07 12/03/20 14:07 General: Alert, Oriented x3, Cooperative HEENT: Atraumatic Oral: Moist Mucosa Lungs: Normal air movement Cardiovascular: Regular rate Extremities: Capillary Refill Less than 3 Seconds Skin: Ulcer/ Wound - Left axilla is healed today. Wound Measurements and Assessment WC - Nurse 1 - General Ulcer Measurement Start: 12/03/20 14:06 Freq: Status: Discharge Protocol: Activity Type Activity Date Activity User E-Sign Co-Sign Detail Recorded Client Recorded Date Recorded By Document 12/03/20 14:07 DL [id number] 12/03/20 14:10 DL Edit Status 12/03/20 14:23 COLE DAEMON Active=>Discharge [id number] 12/03/20 14:23 COLE DADAYANAON 12/03/20 14:07 Wound Center Nurse 1 [Ulcer Assessment] #1 L Axilla -Current Size (cm) - Length 0 -Current Size (cm) - Width 0 -Current Size (cm) - Depth 0 -Total Square Cm 0 -Photo Taken Yes -Exudate Amt None Present -Wound Margin Flat & Intact -Granulation Amt Large (67-100%) -Granulation Quality [place] -Slough/Fibrin Yes -Necrosis Amt None Present (0 %) -Structure Exposed N/A -Texture (Francoise-wound Skin Appearance) Scarring -Moisture (Francoise-wound Skin Appearance No Abnormality ) -Color (Francoise-wound Skin Appearance) No Abnormality -Temperature (Francoise-wound Skin No Abnormality Appearance) (Pt Warm) -Tenderness on Palpation (Francoise-wound No Skin Appearance) -Ulcer Cleansing Rinsed/ Irrigated with Saline -Foul Odor after Cleansing No - Nurse 2 - General Ulcer CM Notes Start: 12/03/20 14:06 Freq: Status: Discharge Protocol: Activity Type Activity Date Activity User E-Sign Co-Sign Detail Recorded Client Recorded Date Recorded By Document 12/03/20 14:16 ANNI [id number] 12/03/20 14:17 ANNI Edit Status 12/03/20 14:23 BKG DAEMON Active=>Discharge [place] [id number] 12/03/20 14:23 BKG DAEMON 12/03/20 14:16 Wound Center Nurse 2 [Procedure/Treatment] -Correct Patient No -Correct Side, Site, Position No -Correct Procedure No -Procedure Performed No -Post Debridement (cm) - Length 0 -Post Debridement (cm) - Width 0 -Post Debridement (cm) - Depth 0 -Total Square (Post) (cm) 0 -Area of Debridement (cm) - Length 0 -Area of Debridement (cm) - Width 0 -Total Square (Area) (cm) 0 -Wound/Ulcer Outcome Healed- Epithelialized [See Physician Procedure note for Specifics] Pain Scale: 0-10 Numeric [Pain] -Is Patient Pain Free? Yes - Nurse 3 - General Ulcer D/C NN Start: 12/03/20 14:06 Freq: Status: Discharge Protocol: Activity Type Activity Date Activity User E-Sign Co-Sign Detail Recorded Client Recorded Date Recorded By Document 12/03/20 14:17 ANNI [id number] 12/03/20 14:17 ANNI Edit Status 12/03/20 14:23 BKG DAEMON Active=>Discharge [facility] 12/03/20 14:23 BKG DAEMON 12/03/20 14:17 -Is Patient Pain Free? Yes - Visit Discharge [Visit Discharge Information] -Discharge Condition Stable -Ambulatory Status Ambulatory -Transportation Private Auto -Medication Reconcilliation completed Yes & provided to patient/care provider -Clinical Summary of Care Provided Yes Musculoskeletal: No Tenderness to Palpation of Joints or Extremities - Good range of motion of his left shoulder and arm Neurological: Cranial nerves II-XII grossly intact Psych/Mental Status: Normal Affect, Appropriate Debridement Note Post-Debridement Measurements/Treatment - Nurse 2 - General Ulcer CM Notes Start: 12/03/20 14:06 Freq: Status: Discharge Protocol: Activity Type Activity Date Activity User E-Sign Co-Sign Detail Recorded Client Recorded Date Recorded By Document 12/03/20 14:16 [id number] 12/03/20 14:17 12/03/20 14:16 Wound Center Nurse 2 #1 L Axilla -Correct Patient No -Correct Side, Site, Position No -Correct Procedure No -Procedure Performed No -Post Debridement (cm) - Length 0 -Post Debridement (cm) - Width 0 -Post Debridement (cm) - Depth 0 -Total Square (Post) (cm) 0 -Area of Debridement (cm) - Length 0 -Area of Debridement (cm) - Width 0 -Total Square (Area) (cm) 0 -Wound/Ulcer Outcome Healed- Epithelialized Pain Scale: 0-10 Numeric Is Patient Pain Free? Yes - Nurse 3 - General Ulcer D/C NN Start: 12/03/20 14:06 Freq: Status: Discharge Protocol: Activity Type Activity Date Activity User E-Sign Co-Sign Detail Recorded Client Recorded Date Recorded By Document 12/03/20 14:17 [id number] 12/03/20 14:17 12/03/20 14:17 Is Patient Pain Free? Yes WC - Visit Discharge Discharge Condition Stable Ambulatory Status Ambulatory Transportation Private Auto Medication Reconcilliation completed & Yes provided to patient/care provider Clinical Summary of Care Provided Yes No debridement was completed today Assessment/Plan Active Problems (Last Reviewed 10/03/20 @ 17:[address] Brayan Mathew MD) Skin ulcer of axilla (Chronic) Hidradenitis suppurativa of left axilla (Chronic) Assessment: 1. Nonhealing hidradenitis ulcer left axilla. 2. Hidradenitis left axilla. 3. Hereditary hemorrhagic telangiectasia (HHT). 4. Epilepsy. 5. s/p surgical preparation left axilla with excision hidradenitis (18 cm2). Plan: He is healed today. He has full range of motion of his left shoulder and left arm. He is back to work with no restrictions and is doing well. Encouraged him to massage the scar with lotion 1-2 times per day to help soften scarring. Follow up as needed. 111xxx-[id number]: [id number] Global Visit
== END 2020-12-03 14:23 | disposition home or self-care (01) ==
LOC: WC 14:00
PROVIDERS: Referring Provider Surgery; Visit Provider Surgery
DX: Z09 Encounter for follow-up examination after completed treatment for conditions other than malignant neoplasm (principal); L73.2 Hidradenitis suppurativa; I78.0 Hereditary hemorrhagic telangiectasia
CPT/HCPCS: 99213; G0463